=== PATIENT | female | born 1985 | race Caucasian/White ===

== ENCOUNTER 2018-12-25 17:48 | Inpatient (IN) | payer BC ==
[2018-12-25] MEDS ORDERED: Nalbuphine* 10 MG/ML 1 ML VIAL IV ONE (19:06)
[2018-12-25] MEDS ORDERED: Promethazine INJ(RESTRICTED)* 25 MG/ML 1 ML VIAL IV ONE (19:06)
[2018-12-25] MEDS ORDERED: Lactated Ringers 1000 ML Bag* 1,000 ML IV ONE (19:06)
[2018-12-25] MEDS ORDERED: Buffered Lidocaine 1% SYRIN* 1 ML/SYRINGE INTRADERM ONE (19:06)
[2018-12-25] MEDS ORDERED: Dinoprostone* 10 MG VAG.SUPP VAGINAL ONE (19:06)
[2018-12-25] MEDS ORDERED: Zolpidem TAB* 5 MG PO ONE (19:09)
[2018-12-25] MEDS ORDERED: Lactated Ringers 1000 ML Bag* 1,000 ML IV SCH (20:00)
--- NOTE | 2018-12-25 20:04 | HP ---
General Information - Reason for Visit Pt here for cervical ripening and IOL - General Information Maternal Age: 33 Grav: 1 Para: 0 SAB: 0 IEA: 0 Estimated Due Date: 12/20/18 Determined By: LMP Gestational Age in Weeks/Days: 40+5 Maternal Blood Type and Rh: O Positive - Results this Serology/RPR Result: Non-Reactive Rubella Result: Immune HBsAg Result: Negative HIV Result: Negative GBS Culture Result: Negative Past Medical History Past Medical History Comment: Hx of depression and anxiety - on clonazepam early in ; zolpidem Pertinent Past Surgical History: None Family History Comment: Pt is adopted, does not know family history - Antepartal Records Antepartal Records: Reviewed, Complicated by: - Anxiety/depression; Bartholian gland cyst (drained) Review of Systems Constitutional: Comfortable CV Complaint: No Respiratory: Shortness of Breath: No Gastrointestinal: No Nausea/Vomiting, Normal Bowel Movement Genitourinary: No Dysuria Musculoskeletal: No Complaint, No Epigastric Pain Neurological: No Headache, No Visual Changes Exam Allergies/Adverse Reactions: Allergies No Known Allergies Allergy (Verified 06/17/13 09:32) Temp 98.5, HR 87, RR 20, BP 118/72, 97% - Measurements Height: 5 ft 9 in Weight: 232 lb Weight in lbs: 232.826088 Body Mass Index (BMI): 34.2 Pre- Weight: 179 lb Weight Gained This : 53 lbs and 0 ozs - Exam Breast: Breast Exam Deferred CVA: No CVA Tenderness Extremities: No Edema Heart: Normal Rhythm/Heart Sounds HEENT: No Significant Findings Lungs: Clear Bilaterally Rectal: Rectal Exam Deferred Reflexes: DTR 2+ Targeted Exam Findings Estimated Weight: 8.5lbs Cervical Exam: Closed Effacement: Thick Presenting Part: Vertex Membrane Status: Intact Bleeding/Discharge: None EFM Findings - External Monitor Findings Baseline Heart Rate: 130 External Monitor Findings: Accelerations Present, No Pattern of Variable or Late Decelerations, Variability Moderate, Baseline Stable External Monitor Findings Comment: No evidence of metabolic acidemia Contractions: None Assessment/Plan - Assessment 33yo, , IUP@40+5 here for cervical ripening and IOL for postdates (41 weeks on Saturday) GBS negative, O+ course complicated by: bartholin gland cyst VSS VE: closed/thick, posterior No evidence of metabolic acidemia Not daja - Obstetrical Risk Factors Obstetrical Risk Factors: Post-Dates - Plan Plan: Admit - Anticipate Vaginal Delivery Plan Comment: Admit to L&D PARQ discussion about ripening options, including Cervidil. Pt and partner in agreement with plan Anticipate progression to active labor - Date/Time of Admission Date of Admission: 12/25/18 Time of Admission: 18:00
--- NOTE | 2018-12-25 20:37 | PN ---
Progress Note - Progress Note Date of Service: 12/25/18 Note: Waiting to place Cervidil until shed workers supervisor sufficient to monitor mom/baby. Pt aware and in agreement with plan.
--- NOTE | 2018-12-25 21:51 | PN ---
Progress Note - Progress Note Date of Service: 12/25/18 Note: Cervidil placed without complication. Pt tolerated well. Monitoring per protocol.
[2018-12-26] MEDS ORDERED: Misoprostol TAB* 100 MCG VAGINAL ONE (10:41)
--- NOTE | 2018-12-26 10:56 | PN ---
Progress Note - Progress Note Date of Service: 12/26/18 Note: S: Pt reports that she did not sleep well. Finds the bed uncomfortable and usually uses Ambien which she did not take last night. Teary about discomfort holding still for FHT. O: BP 125/89 HR 81 RR 16 T 98.6 FHT 145bpm. Moderate variability. +Accels. No decels UCs q 2-4 min, mild (Denies > 2 strong UCs in 10 minutes) VE 1cm/long/vtx -2 s/p 12 hours of Cervidil (removed at 0945) Bishops Score: 3. Not favorable for induction A: IUP at 40-6/7 here for postdates ripening/induction No evidence of metabolic acidemia P: Given current exam discussed indication for ongoing ripening. Reviewed repeat Cytotec vs. Vaginal misoprostol vs. Cook Catheter paired with low dose IV pitocin. Pt hoping to avoid extermination inspector monitoring and pitocin at this time. PARQ vaginal misoprostol. Pt and FOB agree.
[2018-12-26] MEDS ORDERED: Acetaminophen TAB* 325 MG PO ONE (14:43)
--- NOTE | 2018-12-26 15:24 | PN ---
Progress Note - Progress Note Date of Service: 12/26/18 Note: S: Pt reports increased crampiness and short, sharp UCs q 15 min. C/O low back ache. Requesting Tylenol. Order previously requested by RN but not yet administered. Plan to give TAMERA. Also using hot packs for comfort O: BP 111/73 HR 82 RR 20 T 98.5 FHT 125bpm. Moderate variability. +Accels. No decels. UCs mild, irregular. Difficult to trace with maternal movement VE: 1cm/70%/vtx -2 A: IUP at 40-6/7 here for postdates ripening/induction No evidence of metabolic acidemia P: Pt still hoping to avoid IV pitocin for now. PARQ Cook Catheter. Pt and FOB agree to placement. Will monitor per protocol. Re-visit IV pitocin augmentation PRN.
--- NOTE | 2018-12-26 17:21 | PN ---
Progress Note - Progress Note Date of Service: 12/26/18 Note: S: Pt reports after Cook Catheter placement UCs got longer and stronger pretty quickly. Describes SROM to clear fluid at 1655. ?s about nitrous use in labor O: BP 121/73 HR 82 T 98.4 RR 20 FHT 125bpm. Moderate variability. +Accels. No decels UCs difficult to trace with maternal position. Suspect q 3-5 min VE: Cook Catheter removed in presence of rupture. 4cm/90%/vtx -1, clear fluid A: IUP at 40-6/7 in early active labor No evidence of metabolic acidemia P: Will continue to monitor labor progress. All ?s answered re: nitrous use in labor for pain relief. Pt to request if desired.
[2018-12-26 17:43] LABS: Urine Benzodiazepine Screen None Detected (None Detect); Urine Opiates Screen None Detected (None Detect)
--- NOTE | 2018-12-26 20:31 | PN ---
Progress Note - Progress Note Date of Service: 12/26/18 Note: S: Pt feeling tired and defeated as though things aren't changing. Requests VE and would like to discuss pain relief options. O: BP 108/59 HR 77 T 98.3 FHT 135bpm. Moderate variability. +Accels. No decels UCs difficult to trace. Q 3-5 min by pt report VE 5-6/90%/vtx -1, clear fluid A: IUP at 40-6/7 in early active labor No evidence of metabolic acidemia P: Pt relieved to hear about cervical change. Counseled for IV pain relief vs. nitrous oxide vs. epidural analgesia. All ?s answered. At this time pt desires trial of hydrotherapy but considering IV pain medication if that doesn't help. Consents to IV placement after tub. Will continue to monitor.
--- NOTE | 2018-12-26 21:30 | PN ---
Progress Note - Progress Note Date of Service: 12/26/18 Note: Quick Note: Pt out of tub. Requests IV placement and Nubain/Phenergan. Ordered
[2018-12-26] MEDS ORDERED: Nalbuphine* 10 MG/ML 1 ML VIAL IV ONE (21:31)
[2018-12-26] MEDS ORDERED: Promethazine INJ(RESTRICTED)* 25 MG/ML 1 ML VIAL IV ONE (21:31)
[2018-12-26 21:57] LABS: ABS Basophils 0.1 10^3/ul (0-0.2); ABS Lymphocytes 1.5 10^3/ul (1.0-4.8); ABS Monocytes 0.8 10^3/ul (0-0.8); Hematocrit 37 % (35-47); Lymphocyte % 7.7 %; Mean Corpuscular HGB Conc 35 g/dL (31-36); Mean Corpuscular Hemoglobin 30 pg (27-31); Mean Corpuscular Volume 86 fL (80-97); Mean Platelet Volume 8.8 fL (7.4-10.4); Platelet Count 272 10^3/uL (150-450); Red Blood Count 4.33 10^6 /uL (3.70-4.87); Red Cell Distribution Width 14 % (10-15); White Blood Count 19.4 10^3/uL (3.5-10.8)
[2018-12-27] MEDS ORDERED: OBEPIDURAL* 250 ML EPIDURAL ONE (02:31)
--- NOTE | 2018-12-27 02:33 | PN ---
Progress Note - Progress Note Date of Service: 12/27/18 Note: S: Pt got a little sleep with Nubain/Phenergan. Also used tub. Requests VE and ongoing discussion of pain relief in labor O: BP 108/59 HR 77 T 98.3 FHT 130bpm. Moderate variability. +Accels. No decels UCs q 8-10 min VE 5-6cm/90%/vtx 0 A: IUP at 40-6/7 in early active labor with inadequate UCs No evidence of metabolic acidemia P: Lengthy review of IV pitocin augmentation. Strong recommendation that we proceed with IV pitocin augmentation. Many questions answered re: epidural analgesia. Pt with some misconceptions. Reviewed at length and all ?s answered. Pt agrees to IV pitocin after epidural analgesia. Anesthesia paged for bedside consult
[2018-12-27] MEDS ORDERED: Lactated Ringers 1000 ML Bag* 1,000 ML IV SCH ×3 (03:00→08:00)
[2018-12-27] MEDS ORDERED: Oxytocin in LR* 20 UNITS/1,000 ML BAG IVPB SCH ×2 (03:00→08:00)
[2018-12-27] MEDS ORDERED: Sodium Citrate/Citric Acid* 15 ML UDC PO PRN (03:32)
[2018-12-27] MEDS ORDERED: Lactated Ringers 1000 ML Bag* 1,000 ML IV ONE (03:32)
[2018-12-27] MEDS ORDERED: Phenylephrine 40 MCG/ML SYRINGE IV PUSH PRN (03:32)
[2018-12-27] MEDS ORDERED: Famotidine TAB* 20 MG PO PRN (03:32)
[2018-12-27] MEDS ORDERED: OBEPIDURAL* 250 ML EPIDURAL SCH (04:00)
[2018-12-27] MEDS ORDERED: Acetaminophen TAB* 325 MG PO PRN (07:36)
[2018-12-27] MEDS ORDERED: Glycerin ADULT SUPP PR PRN (07:36)
[2018-12-27] MEDS ORDERED: Dibucaine 1% 28.35 GM TUBE PR PRN (07:36)
[2018-12-27] MEDS ORDERED: Witch Hazel PAD* JAR TOPICAL PRN (07:36)
--- NOTE | 2018-12-27 07:47 | PROCNOTE ---
[facility] OB: Delivery Note - Delivery A Date of : 12/27/18 Time of : 07:03 [place] Sex: Male - "Cedric" Score 1 Minute: 8 Score 5 Minutes: 9 Gestational Age in Weeks and Days at Delivery: 41 Weeks and 0 Days Delivery Method: Spontaneous Vaginal Labor: Induced Did Patient attempt ?: N/A, No Previous Amniotic Fluid: Clear Estimated Blood Loss: 300 Anesthesia/Analgesia: IM/IV, CEI for Labor - placed by Dr. Darnell Delivered By: Garrett Moran - Nursery Level of Nursery: Regular/Bedside - Perineum Perineal Injury: 1st Degree - repaired in the usual fashion with 3-0 Rapide under local infiltration 1% lidocaine and epidural analgesia. Anatomy restored and good hemostasis achieved. Pt tolerated well Perineal Repair: By Delivering Practioner - Events Delivery Events of Note: Pitocin During Labor - Additional Delivery Notes Additional Delivery Notes: Pt admitted for postdates induction of labor. Received Cervidil x 1 followed by vaginal misoprostol x1 followed by placement of Cook catheter which resulted in spontaneous rupture to clear fluid at 4-5cm dilation. Cook catheter removed. After several hours with no further cervical change pt opted for trial IV pain relief with Nubain/Phenergan so she could nap. After rest she requested labor epidural with excellent relief. IV pitocin augmentation led to normal progress in labor with spontaneous onset maternal pushing. Length of active labor 12 hours, 11 min. Pushed x 6 min. liveborn male. Slow, controlled delivery of head. OA to DASHAWN. Shoulders followed easily. Nuchal cord x 1 reduced after delivery with ease. [place] vigorous with spontaneous cry. HR>110bpm. Delivered to maternal abdomen. Cord clamped x 2 and cut by FOB once pulsations ceased. Spontaneous delivery intact placenta. Membranes complete. Fundus firm to massage with minimal bleeding, IV pitocin infusing. Repair as above. EBL 300mL. At time of note mother and infant in stable condition. Planning to breast feed.
[2018-12-27] MEDS ORDERED: Simethicone TAB* 80 MG TAB.CHEW PO SCH (08:30)
[2018-12-27] MEDS ORDERED: Lidocaine 1% INJ* 10 MG/ML 30 ML SDV ONE (08:30)
[2018-12-27] MEDS: Docusate CAP* 100 MG PO SCH ×3 (12:16→20:58)
[2018-12-27] MEDS: Ibuprofen TAB* 600 MG PO PRN ×2 (14:01→20:58)
--- NOTE | 2018-12-27 15:15 | PTEDU ---
Patient Name: LESLEY JONES LESLEY JONES selected video: BBOB: Nurturing Your Gorgeous &Growing Baby by to ty barnett on 12/27/2018 at 3:13:39 PM [email or web address]
[2018-12-28] MEDS: Ibuprofen TAB* 600 MG PO PRN ×2 (04:29→10:20)
[2018-12-28 07:30] VITALS: BP 109/77
[2018-12-28 08:35] LABS: Hematocrit 32 % (35-47); Hemoglobin 10.9 g/dL (12.0-16.0); Mean Corpuscular HGB Conc 34 g/dL (31-36); Mean Corpuscular Hemoglobin 30 pg (27-31); Mean Corpuscular Volume 88 fL (80-97); Mean Platelet Volume 8.2 fL (7.4-10.4); Platelet Count 213 10^3/uL (150-450); Red Blood Count 3.65 10^6 /uL (3.70-4.87); Red Cell Distribution Width 14 % (10-15); White Blood Count 15.9 10^3/uL (3.5-10.8)
[2018-12-28] MEDS ORDERED: Tetan/Diph/Pertus SYR(Tdap)* 0.5 ML SYR(BOOSTRIX) use SYR IM ONE (09:00)
[2018-12-28] MEDS ORDERED: Ferrous Gluconate TAB* 324 MG TAB PO SCH (09:00)
[2018-12-28 09:50] LABS: ABS Basophils 0.1 10^3/ul (0-0.2); ABS Eosinophils 0.2 10^3/ul (0-0.6); ABS Lymphocytes 3.5 10^3/ul (1.0-4.8); ABS Monocytes 1.1 10^3/ul (0-0.8); ABS Neutrophils 11.1 10^3/ul (1.5-7.7); Eosinophil % 1.2 %; Lymphocyte % 22.1 %; Nucleated Red Blood Cells % 0.1
[2018-12-28] MEDS: Docusate CAP* 100 MG PO SCH (10:20)
--- NOTE | 2018-12-28 12:33 | PTEDU ---
Patient Name: LESLEY JONES KARENVENESSALESLEY selected video: Follow Me Mum: The Brit[place] to Successful to view on 12/28 at 12:31:35 PM [email or web address]
--- NOTE | 2018-12-28 12:37 | PTEDU ---
Patient Name: LESLEY JONES KAREN LESLEY selected video: Follow Me Mum: The Brito to Successful to view on 12/28 at 12:36:11 PM [email or web address]
--- NOTE | 2018-12-28 13:01 | PTEDU ---
Patient Name: LESLEY JONES LESLEY JONES selected video: BBOB: Nurturing Your Gorgeous &Growing Baby by to ty barnett on 12/28/2018 at 1:00:27 PM [email or web address]
--- NOTE | 2018-12-28 13:01 | PTEDU ---
Patient Name: LESLEY JONES KARENVENESSALESLEY selected video: Follow Me Mum: The Brito to Successful to view on 12/28 at 12:59:28 PM [email or web address]
== END 2018-12-28 13:44 | disposition home or self-care (01) | DRG 807 ==
LOC: MCHOBOUT 17:48 → MCHOB 21:59
PROVIDERS: ADMIT Advanced Practice Midwife; ATTEND Midwife
PROC: 10E0XZZ Delivery of Products of Conception, External Approach (ICD-10-PCS; principal; 2018-12-27)
PROC: 3E033VJ Introduction of Other Hormone into Peripheral Vein, Percutaneous Approach (ICD-10-PCS; 2018-12-27)
PROC: 0HQ9XZZ Repair Perineum Skin, External Approach (ICD-10-PCS; 2018-12-27)
DX: O48.0 Post-term pregnancy (principal); Z37.0 Single live birth; O70.0 First degree perineal laceration during delivery; O99.344 Other mental disorders complicating childbirth; F41.8 Other specified anxiety disorders; O69.81X0 Labor and delivery complicated by cord around neck, without compression, not applicable or unspecified; Z3A.41 41 weeks gestation of pregnancy
CPT/HCPCS: 36415; 80307; 85025; 86850; 86900; 86901; A9270-GY; J2300; J2550; S0191

== ENCOUNTER → 2019-03-20 | Day surgery (SDC) | payer BC ==
[~2019-03-20] MED LIST: Acetaminophen TAB* 325 MG ONE; Acetaminophen TAB* 325 MG PO ONE; Buffered Lidocaine 1% SYRIN* 1 ML/SYRINGE INTRADERM ONE; Dexamethasone IV* 4 MG/ML 1 ML (4 MG) ONE; Ketorolac INJ* 30 MG/ML 1 ML VIAL ONE; Lactated Ringers 1000 ML Bag* 1,000 ML IV SCH; Lidocaine 1% INJ* 10 MG/ML 30 ML SDV ONE; Lidocaine 1% w EPI 1:200,000* SDV 30 ML VIAL ONE; Lidocaine 2% PF* 10 ML AMP ONE; Midazolam* 1 MG/ML 2 ML VIAL (2 MG) ONE; Naloxone* 0.4 MG/ML 1 ML VIAL IV PRN; Ondansetron INJ* 2 MG/ML VIAL IV PRN; Ondansetron INJ* 2 MG/ML VIAL ONE; PROCHLORPERAZINE INJ 5 MG/ML 2 ML VIAL IV PRN; Propofol* 10 MG/ML 20 ML BTL ONE; fentaNYL* 50 MCG/ML 2 ML VIAL (100 MCG VIAL) IV PRN; fentaNYL* 50 MCG/ML 2 ML VIAL (100 MCG VIAL) ONE; oxyCODONE TAB* 5 MG TAB ONE; oxyCODONE TAB* 5 MG TAB PO PRN
[2019-03-20 07:28] LABS: ABS Basophils 0.1 10^3/ul (0-0.2); ABS Eosinophils 0.5 10^3/ul (0-0.6); ABS Lymphocytes 3.5 10^3/ul (1.0-4.8); ABS Monocytes 0.7 10^3/ul (0-0.8); ABS Neutrophils 5.5 10^3/ul (1.5-7.7); Eosinophil % 4.7 %; Hematocrit 39 % (35-47); Hemoglobin 13.2 g/dL (12.0-16.0); Lymphocyte % 34.3 %; Mean Corpuscular HGB Conc 34 g/dL (31-36); Mean Corpuscular Hemoglobin 29 pg (27-31); Mean Corpuscular Volume 87 fL (80-97); Mean Platelet Volume 7.6 fL (7.4-10.4); Platelet Count 293 10^3/uL (150-450); Red Blood Count 4.53 10^6 /uL (3.70-4.87); Red Cell Distribution Width 15 % (10-15); White Blood Count 10.2 10^3/uL (3.5-10.8)
[2019-03-20 09:10] VITALS: BP 101/61
--- NOTE | 2019-03-20 10:54 | OP ---
DATE OF OPERATION: 03/20/19 - SDS DATE OF : 81 SURGEON: Jammie Mae MD. ANESTHESIA: General endotracheal with local. PRE-OP DIAGNOSIS: Left Bartholin gland cyst. POST-OP DIAGNOSIS: Left Bartholin gland cyst. OPERATIVE PROCEDURE: Marsupialization of left Bartholin gland cyst. FLUIDS: 400 cc of crystalloid. URINE OUTPUT: Not recorded. ESTIMATED BLOOD LOSS: Minimal. FINDINGS: Revealed an approximately 4 cm left Bartholin gland cyst filled with old hemorrhagic fluid. COMPLICATIONS: None apparent. DISPOSITION: Stable to recovery room. DESCRIPTION OF PROCEDURE: The patient was placed in dorsal lithotomy position. Legs were placed in universal Jone stirrups. The patient was identified with universal protocol for correct procedure and position of the patient. Negative urine test. 1% lidocaine with epinephrine was infused 8 cc to the operative site on the left inner vagina. An Allis was placed on the labia majora and mons for retraction. Scalpel was used to incise the left Bartholin gland, which extruded approximately 30 cc of blood, old hemorrhagic fluid. Allis clamps were placed on the Bartholin cyst wall and vaginal wall and marsupialization was carried out using 2-0 Vicryl in an interrupted fashion. Biopsy was then obtained at the base of the Bartholin cyst and this was sent out. Hemostasis was assured with Bovie coagulation. The patient tolerated the procedure well. Minimal bleeding was noted, and the patient was taken to recovery room after legs were placed out of universal Jone stirrups and was transferred to the holding room in recovery room in stable condition. [id number] #: [id number] MTDD
== END | disposition home or self-care (01) ==
LOC: OR 05:41
PROVIDERS: ATTEND Obstetrics & Gynecology
DX: N75.0 Cyst of Bartholin's gland (principal)
CPT/HCPCS: 36415; 81025; 85025; 86850; 86900; 86901; 88304; A9270-GY; J1100; J1885; J2001; J2250; J2405; J2704; J3010

== ENCOUNTER 2023-12-24 13:18 | Observation (INO) ==
[2023-12-24 15:55] LABS: ABS Eosinophils 0.1 10^3/uL (0.0-0.5); ABS Lymphocytes 3.5 10^3/uL (1.0-4.8); ABS Monocytes 0.6 10^3/uL (0.0-0.9); ABS Neutrophils 4.2 10^3/uL (1.5-7.6); ABS Nucleated RBC 0.01 10^3/ul; Eosinophil % 1.3 %; Hematocrit 39.9 % (35-45); Hemoglobin 13.3 g/dL (11.5-14.3); Lymphocyte % 41.5 %; Mean Corpuscular Hemoglobin 28.5 pg (27-33); Mean Corpuscular Hgb Conc 33.3 g/dL (31-36); Mean Corpuscular Volume 85.8 fL (80-97); Mean Platelet Volume 7.5 fL (7.5-11.2); Nucleated Red Blood Cells % 0.1 %/100WBC (0.0-0.8); Platelet Count 309 10^3/uL (150-450); Red Blood Count 4.65 10^6/uL (3.63-4.92); Red Cell Distribution Width 14.2 % (12-17); White Blood Count 8.4 10^3/uL (3.8-11.8)
[2023-12-24 16:23] LABS: C Reactive Protein 17.97 mg/L (<8.01); Calcium 9.4 mg/dL (8.6-10.3); Creatinine, Serum 0.64 mg/dL (0.51-0.95); Potassium 4.3 mmol/L (3.5-5.0); eGFR CKD-EPI 114.5 (>60)
[2023-12-24 21:45] LABS: Activated Partial Thrombo Time 30.7 seconds (26.0-38.0); Urine Appearance Clear; Urine Bilirubin Negative (Negative); Urine Blood Negative (Negative); Urine Color Yellow; Urine Glucose Negative (Negative); Urine Ketones Negative (Negative); Urine Nitrite Negative (Negative); Urine Protein Trace (Negative); Urine Specific Gravity 1.026 (1.002-1.030); Urine Urobilinogen Negative (Negative)
[2023-12-24] MEDS: oxyCODONE/Acetamin 5/325 mg TAB PO ONE (22:10)
[2023-12-24] MEDS: cefTRIAXone 2 gm/50 mL D5W 2 GM/50 ML BAG IV ONE (22:10)
[2023-12-24] MEDS: Vancomycin 1,250 MG in NS 0.9% 250 ml 250 ML IVPB ONE (22:40)
[2023-12-24 22:46] LABS: Erythrocyte Sed Rate 19 mm/Hr (0-19)
[2023-12-25] MEDS ORDERED: Vancomycin per Pharmacy 1 EA NOTE FOLLOW UP SCH (01:00)
[2023-12-25 06:12] LABS: ABS Basophils 0.1 10^3/uL (0.0-0.1); ABS Eosinophils 0.2 10^3/uL (0.0-0.5); ABS Lymphocytes 3.4 10^3/uL (1.0-4.8); ABS Monocytes 0.7 10^3/uL (0.0-0.9); ABS Neutrophils 3.6 10^3/uL (1.5-7.6); Eosinophil % 2.7 %; Hematocrit 39.3 % (35-45); Hemoglobin 12.9 g/dL (11.5-14.3); Lymphocyte % 43.2 %; Mean Corpuscular Hemoglobin 28.3 pg (27-33); Mean Corpuscular Hgb Conc 32.9 g/dL (31-36); Mean Corpuscular Volume 86.3 fL (80-97); Mean Platelet Volume 7.3 fL (7.5-11.2); Platelet Count 282 10^3/uL (150-450); Red Blood Count 4.55 10^6/uL (3.63-4.92); White Blood Count 7.9 10^3/uL (3.8-11.8)
[2023-12-25] MEDS: Vancomycin 1,250 MG in NS 0.9% 250 ml 250 ML IVPB SCH (06:22)
[2023-12-25 08:04] LABS: Anion Gap 4 mmol/L (2-16); Blood Urea Nitrogen 5 mg/dL (6-24); CO2 Carbon Dioxide 18 mmol/L (22-32); Calcium 5.5 mg/dL (8.6-10.3); Chloride 120 mmol/L (101-111); Creatinine, Serum < 0.30 mg/dL (0.51-0.95); Glucose 68 mg/dL (70-100); Potassium 2.9 mmol/L (3.5-5.0); Sodium 142 mmol/L (135-145); eGFR CKD-EPI 137.4 (>60)
[2023-12-25 08:10] LABS: INR 1.03 (0.83-1.13)
[2023-12-25 09:12] LABS: Calcium 8.9 mg/dL (8.6-10.3); Creatinine, Serum 0.63 mg/dL (0.51-0.95); Potassium 4.4 mmol/L (3.5-5.0); eGFR CKD-EPI 114.9 (>60)
[2023-12-25] MEDS ORDERED: Vancomycin 1,000 MG in NS 0.9% 250 ml 250 ML IVPB ONE (10:00)
[2023-12-25] MEDS ORDERED: Senna TAB 8.6 mg TAB PO PRN (21:18)
[2023-12-25] MEDS ORDERED: cefTRIAXone 1 gm/50 mL D5W 1 GM/50 ML BAG IV SCH (22:00)
[2023-12-25] MEDS: Gadoteridol (CONTRAST) 279.3 MG/ML 10 ML IV ONE (22:32)
[2023-12-26] MEDS: cefTRIAXone 2 GM ADDV.VIAL 2 GM in NS 0.9% 100 ml BAG 100 ML IV ONE (02:08)
[2023-12-26] MEDS ORDERED: Vancomycin Trough Check NOTE FOLLOW UP ONE (05:30)
[2023-12-26] MEDS: fentaNYL 100 mcg/2 ml 50 MCG/ML VIAL ONE (13:48)
[2023-12-26] MEDS ORDERED: Vancomycin 750 MG in NS 0.9% 250 ml 250 ML IVPB SCH (14:00)
[2023-12-26] MEDS: cefTRIAXone 2 gm/50 mL D5W 2 GM/50 ML BAG IV SCH (14:11)
[2023-12-26] MEDS ORDERED: Vancomycin per Pharmacy 1 EA NOTE FOLLOW UP PRN (14:25)
[2023-12-26 15:45] LABS: QuantiferonTb Gold Plus Result Negative (Negative)
[2023-12-26] MEDS: Vancomycin 1,750 MG in NS 0.9% 500 ml BAG 500 ML IVPB ONE (16:03)
[2023-12-26 17:55] VITALS: BP 125/78
[2023-12-27] MEDS ORDERED: Vancomycin 1,250 MG in NS 0.9% 250 ml 250 ML IVPB SCH
[2023-12-27] MEDS ORDERED: Vancomycin Trough Check NOTE FOLLOW UP ONE (15:30)
[2023-12-28 17:30] LABS: Cyclic Citrullinated Peptide <15.6 U
== END 2023-12-26 18:34 | disposition home or self-care (01) ==
LOC: ED 13:18 → EDHOLD 13:18 → MED 12-25 20:01
PROVIDERS: ADMIT Student in an Organized Health Care Education/Training Program; ATTEND Student in an Organized Health Care Education/Training Program